=== PATIENT | female | born 1970 | race Caucasian/White ===

== ENCOUNTER 2021-09-19 08:22 | Outpatient (CLI) | payer OTHER, SELFPAY ==
--- NOTE | ~2021-09-19 | CT_ITS ---
EXAMINATION: CT abdomen pelvis wo con DATE: 09/19/2021 09:10 INDICATION: Left abdominal pain. TECHNIQUE: Computed tomography (CT) of the abdomen and pelvis was performed without intravenous contr ast. Automated exposure control and iterative reconstruction technique were employed. The dose-length product was 1452.83 mGy-cm. COMPARISON: Chest single view 12/26/2020 FINDINGS: The visualized portions of the lung bases demonstrate mild atelectasis. A calcified right l esteban nodule is consistent with old granulomatous disease. No pleural effusion. There is chronic marked elevation of right hemidiaphragm. The heart size is normal. No pericardial effusion. Partially visua lized is a 19 mm mass in right breast with radiopaque marker. The liver, gallbladder, spleen, pancrea s, adrenal glands, and kidneys are normal. There are surgical changes of the stomach. There are no di lated loops of bowel. There are changes of appendectomy. There are no pathologically enlarged lymph n odes. There is no free intraperitoneal fluid. There is mild thoracolumbar spondylosis. IMPRESSION: 1. No etiology for the patient's symptoms. Reviewed, dictated and finalized at location A.
--- NOTE | ~2021-09-19 | MM_ITS ---
EXAMINATION: MM screening marc BI w concha HISTORY: Screening mammogram TECHNIQUE: Craniocaudal and mediolateral oblique 3-D tomosynthesis images were obtained and synthetic 2-D images were generated. CAD analysis was submitted and interpreted. COMPARISON: No prior mammogram is available for comparison at this institution. BREAST PARENCHYMAL COMPOSITION: The breasts are almost entirely fatty. FINDINGS: RIGHT BREAST: A mass is present in the middle third of the outer breast 11 cm from the nipple on the craniocaudal view. LEFT BREAST: There is no suspicious mass, calcification, or architectural distortion to suggest malig flaca. IMPRESSION: 1. Right breast mass which may represent the patient's baseline however no comparison is currently av ailable. 2. Comparison with prior mammograms is necessary. BI-RADS Category 0: Incomplete: Needs comparison with prior mammograms. Reviewed, dictated and finalized at location A. IMPRESSION: 1. Right breast mass which may represent the patient's baseline however no comp arison is currently available. 2. Comparison with prior mammograms is necessary. BI-RADS Category 0: Incomplete: Needs comparison with prior mammograms.
== END 2021-09-19 08:23 | disposition home or self-care (01) ==
DX: Z12.31 Encounter for screening mammogram for malignant neoplasm of breast (principal); R10.9 Unspecified abdominal pain; R92.8 Other abnormal and inconclusive findings on diagnostic imaging of breast
CPT/HCPCS: 74176; 77063; 77067